=== PATIENT | female | born 1995 | race American Indian/Alaskan Native ===

== ENCOUNTER 2019-08-05 13:51 | Emergency (ER) | payer SELFPAY ==
--- NOTE | 2019-08-05 13:58 | Emergency Department Report ---
Blank Doc - Documentation Documentation: This is a 24-year-old female that presents with left side abdominal/flank pain. Also stated has no menstrual cycle for 3 months. This initial assessment/diagnostic orders/clinical plan/treatment(s) is/are subject to change based on patient's health status, clinical progression and re- assessment by fellow clinical providers in the ED. Further treatment and workup at subsequent clinical providers discretion. Patient/guardians urged not to elope from the ED as their condition may be serious if not clinically assessed and managed. Initial orders include: 1- Patient sent to [facility] for further evaluation and treatment 2- [facility] 3-labs
[2019-08-05 14:34] LABS: Bilirubin,Urine NEG (Negative); Blood,Urine NEG (Negative); Color,Urine Yellow (Yellow); Mucus,Urine FEW /HPF
[2019-08-05 14:40] LABS: HCG Qualitative,Urine Positive (Negative)
--- NOTE | 2019-08-05 14:47 | Emergency Department Report ---
ED Abdominal Pain HPI - General Chief Complaint: Abdominal Pain Stated Complaint: NO CYCLE IN 3MOS/STOMACH PAIN Time Seen by Provider: 08/05/19 14:37 Source: patient Mode of arrival: Ambulatory Limitations: No Limitations - History of Present Illness Initial Comments: Patient is a 24-year-old female that presents emergency room with left-sided abdominal pain. Patient denies right-sided abdominal pain. Patient denies nausea vomiting diarrhea. Patient denies fever or chills. Patient states she has not had her period for 3 months. Patient denies a chance of . Patient states the pain is 8 out of 10. Patient states she is not on c ontrol. Patient states she is sexually active. 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 denies: nausea, vomiting, diarrhea, fever, chills, constipation, dysuria, hematemesis, hematochezia, melena, hematuria, anorexia, syncope - Related Data Allergies Allergy/AdvReac Type Severity Reaction Status Date / Time No Known Allergies Allergy Unverified 08/05/19 13:54 ED Review of Systems ROS: Stated complaint: NO CYCLE IN 3MOS/STOMACH PAIN Other details as noted in HPI Constitutional: denies: chills, fever Eyes: denies: eye pain, eye discharge, vision change ENT: denies: ear pain, throat pain Respiratory: denies: cough, shortness of breath, wheezing Cardiovascular: denies: chest pain, palpitations Endocrine: no symptoms reported Gastrointestinal: abdominal pain. denies: nausea, diarrhea Genitourinary: denies: urgency, dysuria, discharge Musculoskeletal: denies: back pain, joint swelling, arthralgia Skin: denies: rash, lesions Neurological: denies: headache, weakness, paresthesias Psychiatric: denies: anxiety, depression Hematological/Lymphatic: denies: easy bleeding, easy bruising ED Past Medical Hx - Past Medical History Previous Medical History?: No - Surgical History Past Surgical History?: No - Family History Family history: no significant - Social History Smoking Status: Never Smoker Substance Use Type: None ED Physical Exam - General Limitations: No Limitations General appearance: alert, in no apparent distress - Head Head exam: Present: atraumatic, normocephalic - Eye Eye exam: Present: normal appearance - ENT ENT exam: Present: mucous membranes moist - Neck Neck exam: Present: normal inspection - Respiratory Respiratory exam: Present: normal lung sounds bilaterally. Absent: respiratory distress - Cardiovascular Cardiovascular Exam: Present: regular rate, normal rhythm. Absent: systolic murmur, diastolic murmur, rubs, gallop - GI/Abdominal GI/Abdominal exam: Present: soft, normal bowel sounds. Absent: distended, tenderness, guarding - Extremities Exam Extremities exam: Present: normal inspection - Back Exam Back exam: Present: normal inspection - Neurological Exam Neurological exam: Present: alert, oriented X3 - Psychiatric Psychiatric exam: Present: normal affect, normal mood - Skin Skin exam: Present: warm, dry, intact, normal color. Absent: rash ED Course Vital Signs 08/05/19 13:57 Temperature 98.6 F Pulse Rate 89 Respiratory 18 Rate Blood Pressure 118/68 O2 Sat by Pulse 100 Oximetry - Reevaluation(s) Reevaluation #1: I discussed all results with patient. I discussed plan of care with patient. Patient agrees with plan of care. Patient is stable for discharge. Patient will be discharged home. Patient given discharge instructions. Patient voiced understanding of discharge instructions 08/05/19 16:55 ED Medical Decision Making - Lab Data Result diagrams: 08/05/19 14:56 08/05/19 14:56 - Radiology Data Radiology results: report reviewed, image reviewed ULTRASOUND OBSTETRIC INDICATION: Pelvic pain/cramping. Amenorrhea. Clinical gestational age of 10 weeks, 3 days. TECHNIQUE: Transabdominal. COMPARISON: None available. FINDINGS: GESTATIONAL SAC: Well-defined oval shape and intrauterine in location. YOLK SAC: No significant abnormality. EMBRYO/FETUS: No significant abnormality. - [place]-Rump Length = 1 cm = 7 weeks, 1 day(s). - Heart Rate = 133 beats per minute. ADNEXA: The right ovary is normal in size and appearance. The left ovary is normal in size with a 3.2 cm simple appearing cyst. There is expected color flow in the left ovary. No adnexal mass is seen. FREE FLUID: Minimal free fluid is likely physiologic. ADDITIONAL FINDINGS: None. IMPRESSION: 1. Single, living intrauterine with estimated sonographic age of 7 weeks, 1 day(s). 2. No acute sonographic abnormality of the pelvis. 3. Additional findings as above. - Medical Decision Making Patient is a 24-year-old female that presents emergency room for amenorrhea and abdominal pain. Patient found to be . Patient's serum beta hCG positive. Patient had a transvaginal ultrasound positive for a single IUP at 7 weeks. Patient stable for discharge. Patient discharged home. Patient will need to follow-up with primary care and [facility]. Patient instructed to take vitamin - Differential Diagnosis . Abdominal pain. Critical care attestation.: If time is entered above; I have spent that time in minutes in the direct care of this critically ill patient, excluding procedure time. ED Disposition Clinical Impression: Amenorrhea Qualifiers: Weeks of gestation: less than 8 weeks Qualified Code(s): Z3A.01 - Less than 8 weeks gestation of Abdominal pain Qualifiers: Abdominal location: left lower quadrant Qualified Code(s): R10.32 - Left lower quadrant pain Disposition: TO HOME OR SELFCARE Is pt being admited?: No Does the pt Need Aspirin: No Condition: Stable Instructions: Abdominal Pain (ED), (ED), Morning Sickness (ED) Additional Instructions: Patient to follow-up with primary care in 2-3 days. Patient to follow up with [facility] in 2-3 days. Patient started vitamin. Patient increase water. Patient eat regularly. Patient to return to ER if condition worsens. Patient to take Tylenol when necessary for pain. Patient to avoid ibuprofen. Referrals: ULISES LEE MD [Staff Physician] - 2-3 Days Time of Disposition: 16:59
[2019-08-05 15:10] LABS: Basophils # (Auto) 0.1 K/mm3 (0.0-0.1); Basophils % (Auto) 0.8 % (0.0-1.8); Eosinophils # (Auto) 0.1 K/mm3 (0.0-0.4); Eosinophils % (Auto) 1.1 % (0.0-4.3); Hematocrit 38.3 % (30.3-42.9); Hemoglobin 12.3 gm/dl (10.1-14.3); Lymphocytes # (Auto) 3.4 K/mm3 (1.2-5.4); Lymphocytes % (Auto) 35.1 % (13.4-35.0); Mean Corpuscular HGB Conc 32 % (30-34); Monocytes # (Auto) 0.8 K/mm3 (0.0-0.8); Monocytes % (Auto) 8.8 % (0.0-7.3); Platelet Count 351 K/mm3 (140-440); Red Blood Count 5.83 M/mm3 (3.65-5.03); Red Cell Distribution Width 17.6 % (13.2-15.2)
[2019-08-05 15:16] LABS: Mean Corpuscular Volume 66 fl (79-97)
[2019-08-05 15:31] LABS: BUN/Creatinine Ratio 9; Blood Urea Nitrogen 7 mg/dL (7-17); Calcium 8.9 mg/dL (8.4-10.2); Hemolysis Index 7
--- NOTE | 2019-08-05 16:41 | Ultrasound Report ---
ULTRASOUND OBSTETRIC INDICATION: Pelvic pain/cramping. Amenorrhea. Clinical gestational age of 10 weeks, 3 days. TECHNIQUE: Transabdominal. COMPARISON: None available. FINDINGS: GESTATIONAL SAC: Well-defined oval shape and intrauterine in location. YOLK SAC: No significant abnormality. EMBRYO/FETUS: No significant abnormality. - [place]-Rump Length = 1 cm = 7 weeks, 1 day(s). - Heart Rate = 133 beats per minute. ADNEXA: The right ovary is normal in size and appearance. The left ovary is normal in size with a 3.2 cm simple appearing cyst. There is expected color flow in the left ovary. No adnexal mass is seen. FREE FLUID: Minimal free fluid is likely physiologic. ADDITIONAL FINDINGS: None. IMPRESSION: 1. Single, living intrauterine with estimated sonographic age of 7 weeks, 1 day(s). 2. No acute sonographic abnormality of the pelvis. 3. Additional findings as above. Signer Name: Rolando Vu MD Signed: 08/05/2019 4:37 PM Workstation Name: [id number]
--- NOTE | 2019-08-05 16:41 | Ultrasound Report ---
ULTRASOUND OBSTETRIC INDICATION: Pelvic pain/cramping. Amenorrhea. Clinical gestational age of 10 weeks, 3 days. TECHNIQUE: Transabdominal. COMPARISON: None available. FINDINGS: GESTATIONAL SAC: Well-defined oval shape and intrauterine in location. YOLK SAC: No significant abnormality. EMBRYO/FETUS: No significant abnormality. - [place]-Rump Length = 1 cm = 7 weeks, 1 day(s). - Heart Rate = 133 beats per minute. ADNEXA: The right ovary is normal in size and appearance. The left ovary is normal in size with a 3.2 cm simple appearing cyst. There is expected color flow in the left ovary. No adnexal mass is seen. FREE FLUID: Minimal free fluid is likely physiologic. ADDITIONAL FINDINGS: None. IMPRESSION: 1. Single, living intrauterine with estimated sonographic age of 7 weeks, 1 day(s). 2. No acute sonographic abnormality of the pelvis. 3. Additional findings as above. Signer Name: Rolando Vu MD Signed: 08/05/2019 4:37 PM Workstation Name: [id number]
[2019-08-05 17:29] VITALS: BP 135/83
== END 2019-08-05 17:00 | disposition home or self-care (01) ==
LOC: ED 13:51
DX: O26.891 Other specified pregnancy related conditions, first trimester (principal); N91.2 Amenorrhea, unspecified; Z3A.01 Less than 8 weeks gestation of pregnancy
CPT/HCPCS: 36415; 76801; 76817; 80048; 81001; 81025; 84702; 85025